=== PATIENT | female | born 1955 | race Caucasian/White ===

== ENCOUNTER → 2016-08-23 | Outpatient (CLI) | payer BC ==
[~2016-08-23] MED LIST: CITA40TA12 PO; EXM/25 PO; GABA-113 PO; LEVO50TA PO; LITH1TAB10 PO; MISCCAP80 PO; MULT-506 PO; NRN/600 PO; OMEG340C PO; TAMO20TA47 PO
[2016-08-23 11:08] LABS: BLOOD UREA NITROGEN 17 mg/dl (7-18); BUN/CREATININE RATIO 19.6 (10-20); CALCIUM 9.3 mg/dl (8.5-10.1); CARBON DIOXIDE 29 mmol/L (21-32); CHLORIDE 105 mmol/L (98-107); CREATININE 0.85 mg/dl (0.60-1.20); GLUCOSE 127 mg/dl (70-99); SODIUM 141 mmol/L (136-145)
[2016-08-23 11:18] LABS: THYROID STIMULATING HORMONE 0.854 uIu/ml (0.300-4.500)
== END | disposition home or self-care (01) ==
LOC: C.LABBC 08:21
PROVIDERS: ATTEND Psychiatry & Neurology Psychiatry
DX: F31.60 Bipolar disorder, current episode mixed, unspecified (principal); Z79.899 Other long term (current) drug therapy

== ENCOUNTER → 2016-08-29 | Outpatient (CLI) | payer BC | END | disposition home or self-care (01) | LOC: C.PATHSPEC 11:32 | PROVIDERS: ATTEND Plastic Surgery | DX: L98.9 Disorder of the skin and subcutaneous tissue, unspecified (principal) ==

== ENCOUNTER → 2016-09-22 | Outpatient (CLI) | payer BC ==
[~2016-09-22] MED LIST changes: -TAMO20TA47 PO; +TAMO20TA9 PO
--- NOTE | 2016-09-22 13:04 | MAMMOGRAPHY REPORT ---
BILATERAL DIGITAL SCREENING MAMMOGRAM TOMOSYNTHESIS WITH CAD: 09/22/2016 CLINICAL HISTORY: Asymptomatic. Personal history of breast cancer. TECHNIQUE: Breast tomosynthesis in addition to standard 2D mammography was performed. Current study was also evaluated with a Computer Aided Detection (CAD) system. COMPARISON: Comparison is made to exams dated: 09/15/2015 mammogram, 09/05/2014 mammogram, 03/04/2014 m ammogram, 09/10/2012 mammogram, 08/03/2010 mammogram - [facility], and 07/24/2007. BREAST COMPOSITION: There are scattered areas of fibroglandular density in both breasts. FINDINGS: No suspicious masses, calcifications, or areas of architectural distortion are noted in e ither breast. There has been no significant interval change compared to prior exams. There are stab le postoperative changes in the left lateral breast from prior lumpectomy, as well as post surgical changes from bilateral reduction mammoplasty. IMPRESSION: ACR BI-RADS CATEGORY 2: BENIGN There is no mammographic evidence of malignancy. A 1 year screening mammogram is recommended. The p atient will receive written notification of the results. Approximately 10% of breast cancers are not detected with mammography. A negative mammographic repor t should not delay biopsy if a clinically suggestive mass is present. Cecy Bonds M.D. /:09/22/2016 07:53:47 Truck Driver Rubbish Collector: Jenny De Paz RT(R)(M), [facility] letter sent: Normal 1/2 BI-RADS Code: ACR BI-RADS Category 2: Benign
== END | disposition home or self-care (01) ==
LOC: C.MAMM 07:17
PROVIDERS: ATTEND Internal Medicine Hematology & Oncology
DX: Z12.31 Encounter for screening mammogram for malignant neoplasm of breast (principal); Z85.3 Personal history of malignant neoplasm of breast

== ENCOUNTER → 2016-10-11 | Outpatient (CLI) | payer BC ==
[2016-10-11 13:21] LABS: BASO % 0.4 %; BASO ABS # 0.02 K/uL (0-0.2); COMPLETE YES; EOS % 2.8 %; HEMATOCRIT 44.3 % (37-47); IG% 0.4 %; LYMPH % 29.4 %; LYMPH ABS # 1.58 K/uL (1.2-3.4); MEAN CELL VOLUME 92.1 fL (80-100); MEAN CORPUSCULAR HGB CONC 33.6 g/dl (32-36); MEAN PLATELET VOLUME 11.5 fL (7.4-10.4); MONO % 8.9 %; NEUT % 58.1 %; PLATELET COUNT 172 K/uL (130-400); RED BLOOD COUNT 4.81 M/uL (4.2-5.4); WHITE BLOOD COUNT 5.37 K/uL (4.8-10.8)
[2016-10-11 13:59] LABS: ESTIMATED AVERAGE GLUCOSE 108 mg/dl; HA1C FLAG Normal (Normal)
[2016-10-11 15:05] LABS: ALT/SGPT 42 U/L (12-78); AST/SGOT 38 U/L (15-37); BLOOD UREA NITROGEN 14 mg/dl (7-18); BUN/CREATININE RATIO 18.5 (10-20); CALCIUM 9.1 mg/dl (8.5-10.1); CARBON DIOXIDE 24 mmol/L (21-32); CHLORIDE 108 mmol/L (98-107); CREATININE 0.76 mg/dl (0.60-1.20); GLUCOSE 99 mg/dl (70-99); POTASSIUM 4.5 mmol/L (3.5-5.1); SODIUM 139 mmol/L (136-145)
[2016-10-11 15:17] LABS: ALB/GLOB RATIO 1.1 (0.9-2); ALKALINE PHOSPHATASE 77 U/L (45-117); CHOLESTEROL 246 mg/dl (0-200); CHOLESTEROL/HDL RATIO 5.7; HDL CHOLESTEROL 43 mg/dl; LDL CHOLESTEROL CALCULATED 180 mg/dl; TRIGLYCERIDES 116 mg/dl (0-150); VERY LOW DENSITY LIPOPROT CALC 23 mg/dl
== END | disposition home or self-care (01) ==
LOC: C.LABBC 09:16
PROVIDERS: ATTEND Physician Assistant Medical
DX: Z00.00 Encounter for general adult medical examination without abnormal findings (principal); F32.9 Major depressive disorder, single episode, unspecified; K52.9 Noninfective gastroenteritis and colitis, unspecified; R73.9 Hyperglycemia, unspecified; I10 Essential (primary) hypertension

== ENCOUNTER 2016-11-19 14:05 | Inpatient (IN) | payer BC ==
[~2016-11-19] VITALS: Ht 157.5 cm; Wt 110.5 kg
[~2016-11-19 14:05] MED LIST changes: -EXM/25 PO; -GABA-113 PO; -LEVO50TA PO
[2016-11-19] MEDS ORDERED: SODIUM CHLORIDE 0.9% 1000ML 1,000 ML IV SCH (14:31)
[2016-11-19] MEDS ORDERED: LITH1TAB10 PO (14:51)
[2016-11-19] MEDS ORDERED: GABA-113 PO (14:51)
[2016-11-19] MEDS ORDERED: EXM/25 PO (14:51)
[2016-11-19 15:08] LABS: BASO % 0.4 %; BASO ABS # 0.02 K/uL (0-0.2); COMPLETE YES; EOS % 3.2 %; HEMATOCRIT 41.1 % (37-47); IG% 0.2 %; LYMPH % 34.3 %; LYMPH ABS # 1.72 K/uL (1.2-3.4); MEAN CELL VOLUME 89.7 fL (80-100); MEAN CORPUSCULAR HGB CONC 34.5 g/dl (32-36); MEAN PLATELET VOLUME 11.4 fL (7.4-10.4); MONO % 5.2 %; NEUT % 56.7 %; PLATELET COUNT 153 K/uL (130-400); RED BLOOD COUNT 4.58 M/uL (4.2-5.4); WHITE BLOOD COUNT 5.01 K/uL (4.8-10.8)
--- NOTE | 2016-11-19 15:09 | DIAGNOSTIC IMAGING REPORT ---
CHEST ONE VIEW PORTABLE CLINICAL HISTORY: Stroke COMPARISON STUDY: 11/22/2012 FINDINGS: The bones soft tissues and hemidiaphragms are normal. The cardiomediastinal silhouette is normal. The lungs are clear. The pulmonary vasculature is normal. IMPRESSION: Negative chest. Electronically signed by: Jaron Coe M.D. 11/19/2016 3:08 PM Dictated Date/Time: 11/19/2016 3:08 PM
[2016-11-19 15:16] LABS: PARTIAL THROMBOPLASTIN RATIO 1.1; PROTHROMBIN TIME (PATIENT) 10.8 SECONDS (9.0-12.0)
[2016-11-19 15:24] LABS: BLOOD UREA NITROGEN 14 mg/dl (7-18); BUN/CREATININE RATIO 16.5 (10-20); CALCIUM 8.7 mg/dl (8.5-10.1); CARBON DIOXIDE 24 mmol/L (21-32); CHLORIDE 109 mmol/L (98-107); CREATININE 0.87 mg/dl (0.60-1.20); GLUCOSE 140 mg/dl (70-99); POTASSIUM 3.6 mmol/L (3.5-5.1); SODIUM 141 mmol/L (136-145)
--- NOTE | 2016-11-19 15:27 | DIAGNOSTIC IMAGING REPORT ---
HEAD CT NONCONTRAST CT DOSE: 537.48 mGy.cm HISTORY: Mental status change Stroke TECHNIQUE: Multiaxial CT images of the head were performed without the use of intravenous contrast. Comparison: None. Findings: The paranasal sinuses and mastoid air cells are clear. The calvarium and skull base are intact. The ventricles and sulci are within normal limits. There is no mass, hematoma, midline shift, or acute infarct. Impression: No acute intracranial abnormality. Electronically signed by: Jaron Coe M.D. 11/19/2016 3:25 PM Dictated Date/Time: 11/19/2016 3:25 PM
[2016-11-19 15:30] LABS: CKMB/CK RATIO 1.5 (0-3.0)
--- NOTE | 2016-11-19 15:57 | EMERGENCY ROOM VISIT NOTE ---
History Report prepared by Paulo: Yanet Kovacs Under the Supervision of: Dr. Chance Funk M.D. First contact with patient: 14:22 Chief Complaint: HEAD PAIN Stated Complaint: HEAD PAIN,NUMBNESS History of Present Illness The patient is a 61 year old female who presents to the Emergency Room with complaints of a worsening headache since last night. The patient states that she felt well all day yesterday. She went to bed around 11pm and developed some numbness in her right cheek. About an hour later she developed a right sided headache. The patient states that it feels like needles are going through her head. 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 He advised her to come to the ED for further evaluation. She rates her current pain as a 7/10 in severity. The patient denies numbness or weakness in her extremities, trouble walking, trouble speaking. She also denies visual symptoms, fever, nausea, vomiting, abdominal pain, and chest pain. She does not have a personal or family history of migraine headaches. She notes that she did have a tissue graft in her mouth two weeks ago. Source of History: patient Onset: 11pm last night Position: head Symptom Intensity: 7/10 Quality: numbness Timing: worsening Associated Symptoms: + numbness (right cheek), No fevers, No chest pain, No nausea, No vomiting, No abdominal pain Note: The patient denies numbness or weakness in her extremities, trouble walking, trouble speaking. Review of Systems See HPI for pertinent positives & negatives. A total of 10 systems reviewed and were otherwise negative. Past Medical & Surgical Medical Problems: (1) Bipolar disorder (2) Breast cancer Surgical Problems: (1) H/O lumpectomy (2) H/O: hysterectomy (3) Hx of bilateral breast reduction surgery Family History Diabetes mellitus FHx: gallbladder disease Heart disease Hypertension Kidney disease Kidney stones Lung disease Stroke Social History Smoking Status: Never Smoker Smokeless Tobacco Use: No Alcohol Use: none Marital Status: Housing Status: lives with significant other Occupation Status: employed Current/Historical Medications Scheduled Citalopram Hydrobromide (Celexa), 40 MG PO HS Exemestane (Aromasin), 25 MG PO QAM Gabapentin (Neurontin), 300 MG PO BID [place] Carbonate Ext Rel (Lithobid Ext Rel), 300 MG PO QAM [place] Carbonate Ext Rel (Lithobid Ext Rel), 600 MG PO QPM Multivitamin (Multivitamin), 1 TAB PO DAILY [place]-3 Fatty Acids ([place] 3), 2 CAP PO DAILY Probiotic Product (Probiotic), 1 CAP PO DAILY Allergies Coded Allergies: No Known Allergies (Unverified , 11/19/16) Physical Exam Vital Signs Date Time Temp Pulse Resp B/P (MAP) Pulse Ox O2 Delivery O2 Flow Rate FiO2 11/19/16 15:27 141/79 11/19/16 15:17 94 Room Air 11/19/16 15:05 77 24 93 Room Air 11/19/16 15:03 81 11/19/16 14:13 36.9 77 18 114/73 94 Room Air Physical Exam Constitutional: Vital signs reviewed. Eyes: Pupils are equal round reactive to light. Conjunctiva are noninjected. ENT: Pharynx is clear without erythema or exudate. Mucous membranes are moist. Neck supple without meningeal signs. Respiratory: Clear to auscultation bilaterally. Breath sounds are equal bilaterally. Cardiovascular: Regular rate and rhythm. No rubs or gallops. GI: Soft, nondistended and nontender. Bowel sounds are present. Musculoskeletal: No peripheral edema. Integumentary: No cyanosis. Neurological: The patient is awake and alert. Cranial nerves II-XII are intact , except for dysesthesia to the entire right face not including the ear or scalp. Motor is 5 out of 5 all extremities. Sensation is intact to light touch all extremities. Normal speech. No pronator drift. No limb ataxia. Psychiatric: Normal affect. Medical Decision & Procedures ER Provider Diagnostic Interpretation: Radiology results as stated below per my review and the radiologist's interpretation: HEAD CT NONCONTRAST CT DOSE: 537.48 mGy.cm HISTORY: Mental status change Stroke TECHNIQUE: Multiaxial CT images of the head were performed without the use of intravenous contrast. Comparison: None. Findings: The paranasal sinuses and mastoid air cells are clear. The calvarium and skull base are intact. The ventricles and sulci are within normal limits. There is no mass, hematoma, midline shift, or acute infarct. Impression: No acute intracranial abnormality. Electronically signed by: Jaron Coe M.D. 11/19/2016 3:25 PM Dictated Date/Time: 11/19/2016 3:25 PM CHEST ONE VIEW PORTABLE CLINICAL HISTORY: Stroke COMPARISON STUDY: 11/22/2012 FINDINGS: The bones soft tissues and hemidiaphragms are normal. The cardiomediastinal silhouette is normal. The lungs are clear. The pulmonary vasculature is normal. IMPRESSION: Negative chest. Electronically signed by: Jaron Coe M.D. 11/19/2016 3:08 PM Dictated Date/Time: 11/19/2016 3:08 PM Laboratory Results 11/19/16 14:55 Red Blood Count 4.58, Mean Corpuscular Volume 89.7, Mean Corpuscular Hemoglobin 31.0, Mean Corpuscular Hemoglobin Concent 34.5, Mean Platelet Volume 11.4, Neutrophils (%) (Auto) 56.7, Lymphocytes (%) (Auto) 34.3, Monocytes (%) (Auto) 5.2, Eosinophils (%) (Auto) 3.2, Basophils (%) (Auto) 0.4, Neutrophils # (Auto) 2.84, Lymphocytes # (Auto) 1.72, Monocytes # (Auto) 0.26, Eosinophils # (Auto) 0.16, Basophils # (Auto) 0.02 11/19/16 14:55 Test 11/19/16 14:41 11/19/16 14:55 11/19/16 15:39 Bedside Prothrombin Time INR 1.0 (0.9-1.1) Bedside Glucose 153 mg/dl (70-90) White Blood Count 5.01 K/uL (4.8-10.8) Red Blood Count 4.58 M/uL (4.2-5.4) Hemoglobin 14.2 g/dL (12.0-16.0) Hematocrit 41.1 % (37-47) Mean Corpuscular Volume 89.7 fL (80-100) Mean Corpuscular Hemoglobin 31.0 pg (25-34) Mean Corpuscular Hemoglobin Concent 34.5 g/dl (32-36) Platelet Count 153 K/uL (130-400) Mean Platelet Volume 11.4 fL (7.4-10.4) Neutrophils (%) (Auto) 56.7 % Lymphocytes (%) (Auto) 34.3 % Monocytes (%) (Auto) 5.2 % Eosinophils (%) (Auto) 3.2 % Basophils (%) (Auto) 0.4 % Neutrophils # (Auto) 2.84 K/uL (1.4-6.5) Lymphocytes # (Auto) 1.72 K/uL (1.2-3.4) Monocytes # (Auto) 0.26 K/uL (0.11-0.59) Eosinophils # (Auto) 0.16 K/uL (0-0.5) Basophils # (Auto) 0.02 K/uL (0-0.2) RDW Standard Deviation 44.1 fL (36.4-46.3) RDW Coefficient of Variation 13.4 % (11.5-14.5) Immature Granulocyte % (Auto) 0.2 % Immature Granulocyte # (Auto) 0.01 K/uL (0.00-0.02) Prothrombin Time 10.8 SECONDS (9.0-12.0) Prothromb Time International Ratio 1.0 (0.9-1.1) Activated Partial Thromboplast Time 27.3 SECONDS (21.0-31.0) Partial Thromboplastin Ratio 1.1 Anion Gap 8.0 mmol/L (3-11) Est Creatinine Clear Calc Drug Dose 83.2 ml/min Estimated GFR () 83.3 Estimated GFR (Non- 71.9 BUN/Creatinine Ratio 16.5 (10-20) Calcium Level 8.7 mg/dl (8.5-10.1) Total Creatine Kinase 92 U/L (26-192) Creatine Kinase MB 1.4 ng/ml (0.5-3.6) Creatine Kinase MB Ratio 1.5 (0-3.0) Troponin I < 0.015 ng/ml (0-0.045) Laboratory results as reviewed by me. Medications Administered Medications (Trade) Dose Ordered Sig/Morris Route Start Time Stop Time Status Last Admin Dose Admin Sodium Chloride 1,000 ml @ 50 mls/hr Q20H IV 11/19/16 14:31 12/19/16 14:30 11/19/16 14:55 50 MLS/HR ECG Indication: other (stroke-like symptoms) Rate (beats per minute): 74 Rhythm: normal sinus Findings: nonspecific-ST abn (leads V1-V3), no ectopy Comparison ECG Date: 03/08/2014 Change: no significant change ED Course 1424: The patient was evaluated in room B7. A complete history and physical exam was performed. 1431: NSS 1000 ml @ 50 mls/hr IV 1529: I reassessed the patient at this time. She is feeling better and resting comfortably. I discussed the results and treatment plan with the patient. I answered all pertaining questions that she had. She expressed understanding and verbalized agreement. 1531: I spoke with Dr. Cerda of neurology. We discussed the patient's case and he recommended admission for a stroke work-up. 1536: I spoke with Dr. Chappell. We discussed the patient's results and treatment plan. The patient will be evaluated by the [facility] for further management. Medical Decision This is a 61-year-old female who presents with headache and numbness to the right side of her face. Differential diagnosis includes intracranial mass, intracranial hemorrhage, TIA, CVA, migraine. I did perform a limited focused review of portions of the patient's old chart on the electronic medical record. The patient has had no recent pertinent visits to this hospital. Medication Reconciliation: I attest that I have personally reviewed the patient' s current medication list. Blood Pressure Screening: Patient was found to have normal blood pressure on screening and does not require follow-up. I did evaluate the patient as noted above. IV access was established. 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 I did order and personally review the patient's 12-lead EKG and chest x-ray as described above. I did order and review the patient's blood work as noted in the electronic medical record. I did order a CT of the head. I did review the images myself as well as the radiology report as described above. There is no evidence of acute CVA or mass. I did reassess the patient. She continues to have symptoms. I did discuss the case with the neurologist on-call. Given her persistent symptoms she will be hospitalized for MRI and further workup. I did add a Lyme titer although she does not have any facial droop. I did discuss the case with the hospitalist and corrections caseworker. Consults Time Called: 152 Consulting Physician: Dr. Creda Returned Call: [address] Cerda of neurology. We discussed the patient's case and he recommended admission for a stroke work-up. Additional Consults: Time Called: 1534 Consulted Physician: Dr. Chappell Returned Call: 153 Additional Comments: I spoke with Dr. Chappell. We discussed the patient's results and treatment plan. The patient will be evaluated by the [facility] for further management. Impression Primary Impression: Right facial numbness Additional Impression: Acute headache Scribe Attestation The scribe's documentation has been prepared under my direct and personally reviewed by me in its entirety. I confirm that the note above accurately reflects all work, treatment, procedures, and medical decision making performed by me. Departure Information Dispostion Being Evaluated By Hospitalist Referrals Preston Silvestre M.D. (PCP) Patient Instructions My [facility] Health Problem Qualifiers Additional Impression: Acute headache Headache type: unspecified Intractability: not intractable Qualified Codes : R51 - Headache
[2016-11-19 16:35] LABS: LYME DISEASE AB IGG NEG (NEG); LYME DISEASE AB IGM NEG (NEG)
[2016-11-19] MEDS ORDERED: ALUMINUM/MAGNESIUM/SIMETH (MAALOX MAX) 30 ML UDC PO PRN (17:30)
[2016-11-19] MEDS ORDERED: ZOLPIDEM TARTRATE 5 MG TAB PO PRN (17:30)
[2016-11-19] MEDS ORDERED: POLYETHYLENE (MIRALAX) 17 GM PACK PO PRN (17:30)
[2016-11-19] MEDS ORDERED: MAGNESIUM HYDROXIDE SUSP 30 ML UDC PO PRN (17:30)
[2016-11-19] MEDS ORDERED: PHARMACIST DISCHARGE MED REC CONSULT PRN (17:30)
[2016-11-19] MEDS ORDERED: ACETAMINOPHEN 325 MG TAB PO PRN (17:30)
[2016-11-19] MEDS ORDERED: ASPIRIN 325 MG ECTAB PO STA (17:40)
[2016-11-19] MEDS ORDERED: SIMVASTATIN 10 MG TAB PO STA (17:42)
[2016-11-19 17:57] VITALS: Ht 157.5 cm; Wt 110.5 kg
--- NOTE | 2016-11-19 18:35 | HISTORY & PHYSICAL EXAMINATION ---
DATE OF ADMISSION: 11/19/2016 CHIEF COMPLAINT: Right-sided numbness of the face. HISTORY OF PRESENT ILLNESS: The patient is a 61-year-old white female with past medical history of bipolar disorder and obesity, presented to the ED with 1 day history of numbness on the right side of her face. The patient stated that her symptoms started yesterday with numbness on the right cheek with headache 7/10 mainly on the right side of her face and head. There was no blurring of vision, no visual problems. Denies any weakness or numbness in the rest of her body. Denies any slurred speech. 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 She called her doctor who advised her to come to the ED. The patient did not take any medications yesterday. She said that she was just trying to meditate and she slept, she woke up with her headache completely resolved but numbness on the right side of the face is continued. The patient never had headaches before and usually has no neurologic symptoms except for intermittent shooting pain in the tips of fingers and toes that can happen every now and then. REVIEW OF SYSTEMS: Denies any fever, chills, weight loss. Denies any double vision, blurry vision. Denies any neck stiffness or swelling. Denies any nasal stuffiness or runny nose or sore throat. Denies any cough, shortness of breath, chest pain or palpitations. Denies any abdominal pain, nausea, vomiting. Denies any rashes or ulcers. Denies any joint pain or swelling. Admits to numbness in the right side of the face, but denies any focal weakness or slurred speech. Denies any dysuria or blood in urine. Denies any depression, suicidal or homicidal thoughts. Denies any lymph nodes or bruises in her body. PAST MEDICAL HISTORY: 1. Bipolar disorder. 2. Breast cancer in the left breast, stage I, status post lumpectomy and radiation in 2012. 3. Obesity. 4. Bilateral breast reduction surgery. FAMILY HISTORY: Diabetes mellitus, heart disease, hypertension and kidney disease. SOCIAL HISTORY: Does not smoke or drink. Lives with her who smokes outside the house. HOME MEDICATIONS: 1. Celexa 40 mg p.o. at bedtime. 2. Gabapentin 300 mg p.o. b.i.d. 3. [place] 300 mg p.o. q.a.m. and 600 mg q.p.m. 4. Multivitamin 1 tablet p.o. daily. 5. [place]-3 fatty acid. 6. Probiotic daily. ALLERGIES: No known drug allergy. PHYSICAL EXAMINATION: VITAL SIGNS: Temperature 36.9, heart rate 77, respirations 24, blood pressure 141/79 and pulse ox 94% on room air. GENERAL: The patient is obese, not in acute distress. HEENT: No jaundice, no pallor. Wet mucous membrane. NECK: Supple. No swelling. HEART: S1, S2 normal. No gallop, rub or murmur. LUNGS: Clear to auscultation bilaterally. Normal chest wall expansion. ABDOMEN: Soft, nontender, nondistended. NEUROLOGIC: Awake, alert, oriented to time, place, and person. Moves all extremities. Sensation intact except for slight numbness over her right zygomatic bone and maxilla. Cranial nerves II-XII appears to be intact. PSYCHIATRIC: Normal affect mood and chain of thoughts. SKIN: No rash or bruises or erythema. EXTREMITIES: No edema or tenderness. IMAGING: CT head showed no acute intracranial abnormality. Chest x-ray was negative for any acute event. LABORATORY DATA: White blood cell count is 5, hemoglobin is 14.2, platelets 153. Creatinine 0.87, BUN is 14. Sodium 141, potassium 3.6. EKG was normal sinus rhythm with nonspecific ST-T wave changes. ASSESSMENT AND PLAN: 1. Right facial numbness that is persistent with right side facial headache that resolved. Normal CT head. We will obtain MRA of the brain, we will also obtain CT angiogram head and neck to rule out any critical stenosis. Obtain 2D echo. Obtain lipids and hemoglobin A1c and TSH to stratify her risk. Neurologist consult has been called by the ED physician. 2. Bipolar disorder on lithium, Obtain a lithium level. 3. Morbid obesity. The patient was consulted to lose weight. 4. Knee arthritis, currently stable. 5. Bipolar disorder. Continue her Celexa, but we will hold lithium until we get the level back. 6. Heparin for deep venous thrombosis prophylaxis. We will treat empirically with aspirin and statin. The patient reported history of myalgia from Lipitor. She agreed to try a low dose simvastatin. [facility]
[2016-11-19] MEDS ORDERED: IV FLUIDS COMPLETED PRN (18:45)
--- NOTE | 2016-11-19 19:18 | DIAGNOSTIC IMAGING REPORT ---
BILATERAL CAROTID DOPPLER STUDY HISTORY: Mental status change Stroke COMPARISON: None. TECHNIQUE: Real-time, grayscale, and color Doppler sonography of the carotid arteries was performed. Imaging reviewed in the transverse and longitudinal planes. All measurements were calculated based on NASCET criteria. FINDINGS: Antegrade flow is seen in the bilateral vertebral arteries. The brachial pressures are hemodynamically similar. Moderate plaque formation bilaterally The peak systolic velocity within the right ICA is 80. The right systolic ratio is 1.2. The peak systolic velocity within the left ICA is 86. The left systolic ratio is 0.9. IMPRESSION: No hemodynamically significant stenosis seen within the carotid arteries. Moderate plaque formation bilaterally Electronically signed by: Jaron Coe M.D. 11/19/2016 7:17 PM Dictated Date/Time: 11/19/2016 7:16 PM
--- NOTE | 2016-11-19 20:28 | DIAGNOSTIC IMAGING REPORT ---
Brain MRI WITHOUT CONTRAST HISTORY: Stroke TECHNIQUE: Multiplanar multisequence MRI of the brain was performed without the use of contrast. COMPARISON STUDY: None. FINDINGS: There are no areas of restricted diffusion to suggest acute infarction. The midline structures are intact. The paranasal sinuses are clear. The mastoid air cells are clear. The ventricles and sulci are within normal limits for age. There is no mass, hematoma, midline shift. The major vascular flow-voids at the skull base are well maintained. IMPRESSION: No acute intracranial abnormality. Electronically signed by: Jaron Coe M.D. 11/19/2016 8:26 PM Dictated Date/Time: 11/19/2016 8:26 PM
--- NOTE | 2016-11-19 20:29 | DIAGNOSTIC IMAGING REPORT ---
Brain MRA HISTORY: Mental status change Stroke - Attention to [place] of [place] TECHNIQUE: 3-D [id number] MRA of the brain was performed without contrast. COMPARISON STUDY: None. FINDINGS: Visualized intracranial internal carotid arteries, distal vertebral arteries, and basilar artery are widely patent. There is no significant stenosis, occlusion, or aneurysm seen within the bilateral ACAs, MCAs, or balance bridge inspector. IMPRESSION: No significant stenosis, occlusion, or aneurysm within the [place] of [place]. Electronically signed by: Jaron Coe M.D. 11/19/2016 8:28 PM Dictated Date/Time: 11/19/2016 8:27 PM
[2016-11-19] MEDS ORDERED: ENOXAPARIN 40 MG/0.4 ML SYR SC SCH (21:00)
[2016-11-19] MEDS ORDERED: CITALOPRAM 40 MG TAB PO SCH (21:00)
[2016-11-19] MEDS: GABAPENTIN 300 MG CAP PO SCH (21:38)
[2016-11-19] MEDS: SODIUM CHLORIDE 0.9% 1000ML 1,000 ML IV SCH (21:38)
[2016-11-19 23:45] VITALS: BP 140/69; PULSE 68; TEMP 36.8; O2SAT 94
[2016-11-20] MEDS: SODIUM CHLORIDE 0.9% 1000ML 1,000 ML IV SCH (03:29)
[2016-11-20 03:42] VITALS: BP 103/65; PULSE 63; TEMP 36.5; O2SAT 94
[2016-11-20] MEDS: GABAPENTIN 300 MG CAP PO SCH (07:29)
[2016-11-20 07:35] VITALS: BP 152/84; PULSE 72; TEMP 36.6; O2SAT 94
[2016-11-20 07:55] LABS: BASO % 0.4 %; BASO ABS # 0.02 K/uL (0-0.2); COMPLETE YES; EOS % 2.3 %; HEMATOCRIT 42.2 % (37-47); IG% 0.2 %; LYMPH % 34.1 %; MEAN CELL VOLUME 90.4 fL (80-100); MEAN CORPUSCULAR HEMOGLOBIN 29.8 pg (25-34); MEAN CORPUSCULAR HGB CONC 32.9 g/dl (32-36); MEAN PLATELET VOLUME 10.9 fL (7.4-10.4); MONO % 5.9 %; NEUT % 57.1 %; PLATELET COUNT 166 K/uL (130-400); RED BLOOD COUNT 4.67 M/uL (4.2-5.4); WHITE BLOOD COUNT 5.57 K/uL (4.8-10.8)
[2016-11-20 08:00] VITALS: O2SAT 94
[2016-11-20 08:31] LABS: BUN/CREATININE RATIO 18.8 (10-20); CHOLESTEROL/HDL RATIO 6.9; CREATININE 0.78 mg/dl (0.60-1.20); MAGNESIUM 2.1 mg/dl (1.8-2.4); POTASSIUM 4.3 mmol/L (3.5-5.1)
[2016-11-20 08:35] LABS: CALCIUM 8.5 mg/dl (8.5-10.1)
[2016-11-20] MEDS ORDERED: MULTIVITAMIN TAB PO SCH (09:00)
[2016-11-20] MEDS ORDERED: ASPIRIN 325 MG ECTAB PO SCH (09:00)
--- NOTE | 2016-11-20 09:59 | Neurology Consultation ---
Neurology Consultation Date of Consultation: Nov 20, 2016. Attending Physician: Glen Calderón D.O. Primary Care Physician: Preston Silvestre M.D. Reason for Consultation: Facial numbness History of Present Illness Source: patient, hospital records The patient is a 61-year-old female who complains of right-sided stabbing head pain that began 2 nights ago. The pain was severe and rated at a 7 out of 10 in severity. The patient also complains of associated numbness affecting primarily the right cheek and around the right eye, but not the right lower jaw. The symptoms began two evenings ago and were still present yesterday morning upon awakening. The symptoms intensified throughout the day. This morning, however, the symptoms have completely resolved. 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 She does not have a known history of trigeminal neuralgia or migraine. The patient also complains of intermittent shakiness of the right lower extremity that occurs with prolonged sitting. As particular symptom has been present for many months and does not seem to be related to her presenting complaint. The patient does admit to a history of chronic, episodic sciatica which radiates down the back of the right thigh. She denies expressing significant low back pain at this time, however. No history of spinal surgeries. Past medical history also notable for bipolar disorder, breast cancer with radiation treatments in 2012, and morbid obesity. Labs reviewed including a CBC, comprehensive metabolic panel, and Lyme antibody screening are unremarkable. Random glucose was 140. Electrocardiogram revealed normal sinus rhythm, [address] of the head and carotid ultrasound were unremarkable. Past Medical/Surgical History Medical Problems: (1) Acute headache Status: Acute (2) Right facial numbness Status: Acute Family History Family history notable for diabetes mellitus, hypertension, and stroke Social History Smoking Status: Former smoker Smokeless Tobacco Use: No Marital Status: Housing Status: lives with significant other Occupation Status: employed Allergies Coded Allergies: No Known Allergies (Unverified , 11/19/16) Current Inpatient Medications Current Inpatient Medications Medications (Trade) Dose Ordered Sig/Morris Route Start Time Stop Time Status Last Admin Dose Admin Enoxaparin Sodium (Lovenox Inj) 40 mg QPM SC 11/19/16 21:00 12/19/16 20:59 11/19/16 21:39 40 MG Sodium Chloride 1,000 ml @ 100 mls/hr Q10H IV 11/19/16 17:22 12/19/16 17:21 11/20/16 03:29 100 MLS/HR Acetaminophen (Tylenol Tab) 650 mg Q4H PRN PO 11/19/16 17:30 12/19/16 17:29 Al Hydrox/Mg Hydrox/Simethicone (Maalox Max Susp) 15 ml Q4H PRN PO 11/19/16 17:30 12/19/16 17:29 Magnesium Hydroxide (Milk Of Magnesia Susp) 30 ml Q12H PRN PO 11/19/16 17:30 12/19/16 17:29 Zolpidem Tartrate (Ambien Tab) 5 mg HSZ PRN PO 11/19/16 17:30 12/19/16 17:29 11/19/16 21:42 5 MG Polyethylene (Miralax Powder Packet) 17 gm DAILY PRN PO 11/19/16 17:30 12/19/16 17:29 Miscellaneous Information (Pharmacist Discharge Med Rec Consult) 1 ea UD PRN N/A 11/19/16 17:30 12/19/16 17:29 Simvastatin (Zocor Tab) 10 mg QPM PO 11/20/16 21:00 12/20/16 20:59 Aspirin (Ecotrin Tab) 325 mg QAM PO 11/20/16 09:00 12/20/16 08:59 11/20/16 07:29 325 MG Citalopram Hydrobromide (celeXA TAB) 40 mg HS PO 11/19/16 21:00 12/19/16 20:59 11/19/16 21:38 40 MG Gabapentin (Neurontin Cap) 300 mg BID PO 11/19/16 21:00 12/19/16 20:59 11/20/16 07:29 300 MG Multivitamins (Multivitamin Tab) 1 tab DAILY PO 11/20/16 09:00 12/20/16 08:59 11/20/16 07:29 1 TAB Miscellaneous (Iv Fluids Completed) 1 ea PRN PRN N/A 11/19/16 18:45 11/19/17 18:44 Review of Systems Review of systems negative for fever, chills, blurry vision, vision loss, hearing loss, sore throat, shortness of breath, cough, chest pain, palpitations , nausea, vomiting, muscle pain, weakness, rash, skin lesions, depression ( although treated with an antidepressant currently) easy bruising, or swollen glands A full 10 point review of systems was obtained from this patient with pertinent positives and negatives described in history of present illness and otherwise listed above. All other systems reviewed and are negative. Physical Exam Vital Signs (Past 24 Hrs): Date Time Temp Pulse Resp B/P (MAP) Pulse Ox O2 Delivery O2 Flow Rate FiO2 11/20/16 07:35 36.6 72 20 152/84 (106) 94 Room Air 11/20/16 04:32 Room Air 11/20/16 03:42 36.5 63 18 103/65 (78) 94 Room Air 11/20/16 00:11 Room Air 11/19/16 23:45 36.8 68 20 140/69 (92) 94 Room Air 11/19/16 18:20 72 24 11/19/16 18:15 36.9 77 19 149/74 97 11/19/16 18:15 70 15 11/19/16 18:10 75 18 11/19/16 18:05 72 22 11/19/16 18:00 77 19 97 11/19/16 17:57 Room Air 11/19/16 17:42 149/74 11/19/16 17:31 165/117 11/19/16 17:30 68 20 11/19/16 17:01 152/84 11/19/16 17:00 73 24 94 11/19/16 16:55 148/68 11/19/16 16:37 72 18 94 11/19/16 16:32 176/112 11/19/16 16:07 74 16 96 11/19/16 16:02 74 24 93 11/19/16 16:01 137/74 11/19/16 15:32 73 28 94 11/19/16 15:27 141/79 11/19/16 15:17 94 Room Air 11/19/16 15:05 77 24 93 Room Air 11/19/16 15:03 81 11/19/16 14:13 36.9 77 18 114/73 94 Room Air The patient is a well-developed, well-nourished, obese female, no acute distress. She is alert and oriented to person place and time. Recent and remote memory intact. Attention and concentration normal. She exhibits a normal spontaneous speech pattern as well as an age-appropriate fund of knowledge. Visual guerra full to confrontation. Visual acuity normal. Pupils equal round reactive to light and accommodation. Eye movements normal. Facial sensation intact for the upper, mid, and lower aspects of both the right and left side of the face. There is no facial weakness or facial droop. Hearing intact to finger rub bilaterally. Palate elevates to midline. Shoulder shrug intact. Tongue protrudes to midline. Sensation intact to light touch, vibration, proprioception , and temperature for all 4 limbs. Deep tendon reflexes are intact and symmetrical. Plantar responses downgoing bilaterally. There is no dysdiadochokinesia or dysmetria with finger to nose or heel to lozano bilaterally. The optic disks and posterior segments are normal to ophthalmoscopic examination. No papilledema or hemorrhages. Carotid pulses normal bilaterally, no bruits to auscultation. Gait and station normal. Muscle strength normal for the arms and legs bilaterally. Muscle tone normal throughout. No atrophy. No abnormal movements observed. Laboratory Results Past 24 Hours: 11/20/16 07:42 Red Blood Count 4.67, Mean Corpuscular Volume 90.4, Mean Corpuscular Hemoglobin 29.8, Mean Corpuscular Hemoglobin Concent 32.9, Mean Platelet Volume 10.9, Neutrophils (%) (Auto) 57.1, Lymphocytes (%) (Auto) 34.1, Monocytes (%) (Auto) 5.9, Eosinophils (%) (Auto) 2.3, Basophils (%) (Auto) 0.4, Neutrophils # (Auto) 3.18, Lymphocytes # (Auto) 1.90, Monocytes # (Auto) 0.33, Eosinophils # (Auto) 0.13, Basophils # (Auto) 0.02 11/20/16 07:42 Test 11/19/16 14:41 11/19/16 14:55 11/19/16 18:46 11/20/16 07:42 Bedside Prothrombin Time INR 1.0 (0.9-1.1) Bedside Glucose 153 mg/dl (70-90) Prothrombin Time 10.8 SECONDS (9.0-12.0) Prothromb Time International Ratio 1.0 (0.9-1.1) Activated Partial Thromboplast Time 27.3 SECONDS (21.0-31.0) Partial Thromboplastin Ratio 1.1 Total Creatine Kinase 92 U/L (26-192) Creatine Kinase MB 1.4 ng/ml (0.5-3.6) Creatine Kinase MB Ratio 1.5 (0-3.0) Troponin I < 0.015 ng/ml (0-0.045) Lyme Disease IgG Antibody NEG (NEG) Lyme Disease IgM Antibody NEG (NEG) [place] Level 0.8 mMOL/L (0.6-1.2) White Blood Count 5.57 K/uL (4.8-10.8) Red Blood Count 4.67 M/uL (4.2-5.4) Hemoglobin 13.9 g/dL (12.0-16.0) Hematocrit 42.2 % (37-47) Mean Corpuscular Volume 90.4 fL (80-100) Mean Corpuscular Hemoglobin 29.8 pg (25-34) Mean Corpuscular Hemoglobin Concent 32.9 g/dl (32-36) Platelet Count 166 K/uL (130-400) Mean Platelet Volume 10.9 fL (7.4-10.4) Neutrophils (%) (Auto) 57.1 % Lymphocytes (%) (Auto) 34.1 % Monocytes (%) (Auto) 5.9 % Eosinophils (%) (Auto) 2.3 % Basophils (%) (Auto) 0.4 % Neutrophils # (Auto) 3.18 K/uL (1.4-6.5) Lymphocytes # (Auto) 1.90 K/uL (1.2-3.4) Monocytes # (Auto) 0.33 K/uL (0.11-0.59) Eosinophils # (Auto) 0.13 K/uL (0-0.5) Basophils # (Auto) 0.02 K/uL (0-0.2) RDW Standard Deviation 43.9 fL (36.4-46.3) RDW Coefficient of Variation 13.4 % (11.5-14.5) Immature Granulocyte % (Auto) 0.2 % Immature Granulocyte # (Auto) 0.01 K/uL (0.00-0.02) Anion Gap 9.0 mmol/L (3-11) Est Creatinine Clear Calc Drug Dose 88.8 ml/min Estimated GFR () 95.1 Estimated GFR (Non- 82.1 BUN/Creatinine Ratio 18.8 (10-20) Calcium Level 8.5 mg/dl (8.5-10.1) Magnesium Level 2.1 mg/dl (1.8-2.4) Triglycerides Level 231 mg/dl (0-150) Cholesterol Level 201 mg/dl (0-200) HDL Cholesterol 29 mg/dl LDL Cholesterol, Calculated 126 mg/dl VLDL Cholesterol, Calculated 46 mg/dl Cholesterol/HDL Ratio 6.9 Imaging An MRA of the head was unremarkable. An MRI of the brain without contrast was unremarkable as well. Diffusion-weighted images negative for acute or subacute infarct. No evidence of significant parenchymal abnormalities. Impression Resolved right facial pain and numbness corresponding primarily to a right V2/ V3 distribution. This patient may have experienced a very brief episode of atypical trigeminal neuralgia or possibly a complex migraine. She has a history of chronic, intermittent, sciatica to the right lower limb which is not clinically significant at this time. Plan If this patient experiences a relapse of her right facial numbness and pain that I would be happy to see her for outpatient follow-up. If her symptoms do recur, then I will consider obtaining an MRI of the brain with and without contrast with attention to the trigeminal nerves. I do not think additional testing for her sciatica is necessary at this time. I do not have any specific treatment recommendations for this patient currently. No further immediate recommendations.
--- NOTE | 2016-11-20 10:25 | Discharge Instructions ---
Discharge Instructions Date of Service Nov 20, 2016. Admission Reason for Admission: Facial Numbness Discharge Discharge Diagnosis / Problem: Facial numbness Discharge Goals Goal(s): Decrease discomfort, Improve function, Increase independence, Improve disease control, Learn about illness, Diagnostic testing Activity Recommendations Activity Limitations: resume your previous activity Exercise/Sports Limitations: none Shower/Bathe: no limitations . Instructions / Follow-Up Instructions / Follow-Up Patient to be discharged home Unlikely numbness related to stroke based on imaging studies Questionable if from complex migraine No changes to medications made If worsening numbness, weakness, difficulty speaking or swallowing please report to ER Please follow up with your primary care provider as scheduled Current Hospital Diet Patient's current hospital diet: Regular Diet Discharge Diet Recommended Diet: Regular Diet Pending Studies Studies pending at discharge: no Laboratory Results Hemoglobin A1c Test 11/19/16 14:55 Range/Units Lipid Panel Test 11/20/16 07:42 Range/Units Triglycerides Level 231 H 0-150 mg/dl Cholesterol Level 201 H 0-200 mg/dl HDL Cholesterol 29 mg/dl Cholesterol/HDL Ratio 6.9 LDL Cholesterol, Calculated 126 mg/dl Medical Emergencies . Who to Call and When: Medical Emergencies: If at any time you feel your situation is an emergency, please call 911 immediately. . Non-Emergent Contact Non-Emergency issues call your: Primary Care Provider Call Non-Emergent contact if: you have a fever, your pain is worsening . . "Provider Documentation" section prepared by Glen Calderón. . VTE Core Measure Inpt VTE Proph given/why not?: Enoxaparin (Lovenox)SQ
[2016-11-20] MEDS ORDERED: PERFLUTREN LIPID MICROSPHERE (DEFINITY) IV ONE (10:40)
[2016-11-20 11:18] VITALS: BP 152/84; PULSE 72; TEMP 36.6; O2SAT 94
--- NOTE | 2016-11-20 11:18 | Discharge Summary ---
Discharge Summary Date of Service Nov 20, 2016. Discharge Summary Admission Date: Nov 19, 2016 at 17:43 Discharge Date: Nov 20, 2016 Discharge Disposition: Home Principal Diagnosis: Right sided facial numbness Immunizations: Have You Had Influenza Vaccine: Yes Influenza Vaccine Date: Jul 05, 2004 History of Tetanus Vaccine?: Yes Tetanus Immunization Date: Jan 02, 2005 History of Pneumococcal: No History of Hepatitis B Vaccine: No Medication Reconciliation Continued Medications: Citalopram Hydrobromide (Celexa) 40 Mg Tab 40 MG PO HS, TAB Exemestane (Aromasin) 25 Mg Tab 25 MG PO QAM, TAB Gabapentin (Neurontin) 300 Mg Cap 300 MG PO BID [place] Carbonate Ext Rel (Lithobid Ext Rel) 300 Mg Tabcr 300 MG PO QAM, TAB [place] Carbonate Ext Rel (Lithobid Ext Rel) 300 Mg Tabcr 600 MG PO QPM, TAB Multivitamin (Multivitamin) Tab 1 TAB PO DAILY, TAB [place]-3 Fatty Acids ([place] 3) 1 Cap Cap 2 CAP PO DAILY Probiotic Product (Probiotic) 1 Cap Cap 1 CAP PO DAILY Discharge Exam Review of Systems: Constitutional: No fever, No chills, No sweats, No weakness Eyes: No worsening of vision, No eye pain, No redness, No discharge ENT: No hearing loss, No unusual epistaxis, No nasal symptoms, No sore throat, No tinnitus Respiratory: No cough, No sputum, No wheezing, No shortness of breath, No dyspnea on exertion Cardiovascular: No chest pain, No orthopnea, No PND, No edema, No claudication Abdomen: No pain, No nausea, No vomiting, No diarrhea Musculoskeletal: No joint pain, No muscle pain Genitourinary - Female: No dysuria, No urinary frequency, No urinary urgency , No urinary incontinence Neurologic: No memory loss, No paralysis, No weakness, No numbness/tingling Psychiatric: No depression symptoms, No anhedonism, No anxiety, No insomnia Endocrine: No fatigue, No excessive thirst Integumentary: No rash, No itch Physical Exam: General Appearance: WD/WN, no apparent distress Eyes: normal inspection, PERRL, EOMI, sclerae normal Neck: supple, no adenopathy, thyroid normal, no JVD Respiratory/Chest: chest non-tender, lungs clear, normal breath sounds, no respiratory distress Cardiovascular: regular rate, rhythm, no edema, no gallop, no JVD Abdomen / GI: normal bowel sounds, non tender, soft, no organomegaly Extremities: normal inspection, no calf tenderness, normal capillary refill , no pedal edema Neurologic/Psychiatric: spring inspector II-XII nml as tested, no motor/sensory deficits , alert, normal mood/affect Skin: normal color, warm/dry, no rash Lymphatic: no adenopathy Hospital Course Right facial numbness that is persistent with right side facial headache that resolved. ? if from complex migraine CT head/MRA of the brain/CT angiogram head and neck unremarkable Obtain 2D echo.pending on discharge If worsening can consider a neurology consult on discharge Bipolar disorder on lithium, Obtain a lithium level. Morbid obesity. The patient was consulted to lose weight. Knee arthritis, currently stable. Bipolar disorder. Continue her Celexa, but we will hold lithium until we get the level back. Heparin for deep venous thrombosis prophylaxis. We will treat empirically with aspirin and statin. The patient reported history of myalgia from Lipitor. She agreed to try a low dose simvastatin. Pt is FULL CODE Total Time Spent: Greater than 30 minutes This includes examination of the patient, discharge planning, medication reconciliation, and communication with other providers. Discharge Instructions Please refer to the electronic Patient Visit Report (Discharge Instructions) for additional information. Additional Copies To Preston Silvestre M.D.
--- NOTE | 2016-11-20 12:06 | ECHOCARDIOGRAM REPORT ---
*NOTICE TO RECEIVING CONSTITUTION PARTY AGENCY This information is strictly Confidential and protected under [place] law. [place] law prohibits you from making any further disclosure of this information unless further disclosure is expressly permitted by the written consent of the person to whom it pertains or is authorized by law. A general authorization for the release of medical or other information is not sufficient for this purpose. Hospital accepts no responsibility if the information is made available to any other person, INCLUDING THE PATIENT. Interpretation Summary * Name: QI CHEN Study Date: 11/20/2016 10:05 AM BP: 152/84 mmHg * Patient Location: C.2T\S\S244\S\1 HR: 72 * : 1955 (M/d/yyyy) Gender: Female Height: 62 in * Age: 61 yrs Ethnicity: [place] Weight: 262 lb * Ordering Physician: Pebbles Leonard * Referring Physician: Self, Referred * Performed By: Lina Martinez RDCS * * Reason For Study: CEREBRAL ISCHEMIA/EMBOLUS * BSA: 2.1 m2 * -- Conclusions -- * The left ventricle is normal in size. * There is normal left ventricular wall thickness. * Ejection Fraction = 60-65%. * Left ventricular systolic function is normal. * The left ventricular wall motion is normal. * The right ventricle is normal in size and function. * No PFO by aggitated saline Procedure Details * A saline contrast injection was performed to assess for cardiac shunting. * The injection was performed through an intravenous line in the left arm. * The attending nurse who injected the saline contrast was BARBARA ANDERSON. * A total of 20 cc of agitated saline was given. * A contrast injection of Definity was performed to improve assessment of LV function. * Contrast was injected into an intravenous site in the left arm. * One vial of Definity ultrasound contrast was diluted in normal saline to a total volume of 10 ml. A total of '2' ml of solution was administered during imaging. * Lot # [id number] of Definity utilized for procedure. * Expiration date JAN 20. * The attending nurse who injected the contrast agent was BARBARA ANDERSON. Left Ventricle * The left ventricle is normal in size. * There is normal left ventricular wall thickness. * Ejection Fraction = 60-65%. * Left ventricular systolic function is normal. * The left ventricular wall motion is normal. Right Ventricle * The right ventricle is normal in size and function. * The right ventricular systolic function is normal as assessed by tricuspid annular plane systolic excursion (TAPSE) (normal >1.5 cm). Atria * The left atrial size is normal. * Right atrial size is normal. * No PFO by aggitated saline Mitral Valve * The mitral valve is grossly normal. * There is trace mitral regurgitation. Tricuspid Valve * The tricuspid valve is not well visualized, but is grossly normal. * There is trace tricuspid regurgitation. Aortic Valve * The aortic valve is trileaflet. * No aortic regurgitation is present. Pulmonic Valve * The pulmonic valve is not well seen, but is grossly normal. Great Vessels * The aortic root is normal size. Pericardium/Pleural * There is no pericardial effusion. Great Vessels * IVC not seen Left Ventricular Diastolic Function * Probably normal LA pressures MMode 2D Measurements and Calculations IVSd 1.6 cm IVSs 1.8 cm LVIDd 3.9 cm LVIDs 2.7 cm LVPWd 1.3 cm LVPWs 1.9 cm IVS/LVPW 1.2 FS 31.1 % EDV(Teich) 65.8 ml ESV(Teich) 26.7 ml EF(Teich) 59.5 % EDV(cubed) 59.2 ml ESV(cubed) 19.4 ml EF(cubed) 67.3 % % IVS thick 13.7 % % LVPW thick 42.3 % LV mass(C)d 219.0 grams LV mass(C)dI 102.1 grams/m\S\2 LV mass(C)s 205.7 grams LV mass(C)sI 96.0 grams/m\S\2 SV(Teich) 39.2 ml SI(Teich) 18.3 ml/m\S\2 SV(cubed) 39.8 ml SI(cubed) 18.6 ml/m\S\2 LA dimension 3.8 cm LVAd ap4 33.7 cm\S\2 LVLd ap4 8.6 cm EDV(MOD-sp4) 106.9 ml EDV(sp4-el) 112.3 ml LVAs ap4 20.8 cm\S\2 LVLs ap4 7.0 cm ESV(MOD-sp4) 48.9 ml ESV(sp4-el) 52.3 ml EF(MOD-sp4) 54.3 % EF(sp4-el) 53.4 % LVAd ap2 33.7 cm\S\2 LVLd ap2 8.9 cm EDV(MOD-sp2) 105.3 ml EDV(sp2-el) 108.1 ml LVAs ap2 21.3 cm\S\2 LVLs ap2 7.5 cm ESV(MOD-sp2) 49.9 ml ESV(sp2-el) 50.8 ml EF(MOD-sp2) 52.7 % EF(sp2-el) 53.0 % LVLd %diff 4.0 % EDV(MOD-bp) 104.8 ml LVLs %diff 7.5 % ESV(MOD-bp) 50.4 ml EF(MOD-bp) 51.9 % SV(MOD-sp4) 58.0 ml SI(MOD-sp4) 27.1 ml/m\S\2 SV(MOD-sp2) 55.5 ml SI(MOD-sp2) 25.9 ml/m\S\2 SV(MOD-bp) 54.4 ml SI(MOD-bp) 25.4 ml/m\S\2 SV(sp4-el) 59.9 ml SI(sp4-el) 28.0 ml/m\S\2 SV(sp2-el) 57.3 ml SI(sp2-el) 26.7 ml/m\S\2 Doppler Measurements and Calculations MV E max paulino 80.5 cm/sec MV A max paulino 62.1 cm/sec MV E/A 1.3 MV dec time 0.22 sec Ao V2 max 146.6 cm/sec Ao max PG 8.6 mmHg Ao max PG (full) 2.2 mmHg LV V1 max PG 6.4 mmHg LV V1 max 126.7 cm/sec
[2016-11-20] MEDS ORDERED: SIMVASTATIN 10 MG TAB PO SCH (21:00)
[2016-11-21 08:02] LABS: ESTIMATED AVERAGE GLUCOSE 108 mg/dl; HA1C FLAG Normal (Normal)
[2017-02-21] MEDS ORDERED: LEVO50TA PO (14:18)
== END 2016-11-20 12:15 | disposition home or self-care (01) | DRG 103 ==
LOC: C.EDB 14:06 → C.2T 17:43 → ENRESERV 17:51
PROVIDERS: ADMIT Internal Medicine; ATTEND Hospitalist
DX: G43.809 Other migraine, not intractable, without status migrainosus (principal); Z68.44 Body mass index [BMI] 60.0-69.9, adult; R20.2 Paresthesia of skin; F31.9 Bipolar disorder, unspecified; M17.9 Osteoarthritis of knee, unspecified; F17.210 Nicotine dependence, cigarettes, uncomplicated; E66.9 Obesity, unspecified; Z79.899 Other long term (current) drug therapy

== ENCOUNTER → 2017-02-21 | Outpatient (CLI) | payer BC ==
[~2017-02-21] MED LIST changes: +EXM/25 PO; +GABA-113 PO; +LEVO50TA PO; -NRN/600 PO; -TAMO20TA9 PO
[2017-02-21 13:57] VITALS: BP 116/76; PULSE 77; TEMP 37.1; O2SAT 94
--- NOTE | 2017-02-21 16:40 | Radiation Oncology Follow-Up ---
Radiation Oncology Follow-Up Date of Visit Feb 21, 2017. Reason For Visit Annual follow-up Radiation Completion Date 06/21/13 Diagnosis (1) Breast cancer Status: Resolved Onset Date: 04/03/2013 Histology Subtype: ductal Stage: l Permanent Comment: Abnormal left breast mammogram Status post biopsy revealing invasive ductal carcinoma Estrogen receptor positive, progesterone receptor positive, HER-2/akilah negative Status post left breast lumpectomy and sentinel lymph node biopsy 04/03/2013 stage [id number] Status post completion of radiation therapy utilizing accelerated partial breast treatment completed 06/21/2013 received 3850 cGy Status post reduction Mamopexy August 2013 Last Edited By: Ashley Nash on Feb 21, 2017 16:35 Interim History She's been doing well over this past year. She denies any changes to her breast. She is noted no masses or tenderness and no change of the axilla she's had no swelling of her arm. She is up-to-date on mammography. She continues on anti-estrogen therapy. She is on Aromasin. She is tolerating this well. She denies any hot flashes. Allergies Coded Allergies: No Known Allergies (Unverified , 11/19/16) Home Medications Scheduled Citalopram Hydrobromide (Celexa), 40 MG PO HS Exemestane (Aromasin), 25 MG PO QAM Gabapentin (Neurontin), 300 MG PO BID Levothyroxine Sodium (Synthroid), 1 TAB PO DAILY [place] Carbonate Ext Rel (Lithobid Ext Rel), 300 MG PO QAM [place] Carbonate Ext Rel (Lithobid Ext Rel), 600 MG PO QPM Multivitamin (Multivitamin), 1 TAB PO DAILY [place]-3 Fatty Acids ([place] 3), 2 CAP PO DAILY Probiotic Product (Probiotic), 1 CAP PO DAILY Review of Systems Gastrointestinal: Symptoms: WNL Oral: Symptoms: No Problems Other Oral Symptoms: had mouth ulcers no prob now Respiratory: Symptoms: WNL Urinary: Symptoms: WNL Comments: Was treated for recent UTI Skin: Symptoms: No Problems Breast: Right Upper Arm Measurement: 36.4 Right Mid Arm Measurement: 28.5 Right Wrist Measurement: 16.8 Left Upper Arm Measurement: 35.2 Left Mid Arm Measurement: 27.3 Left Wrist Measurement: 16.6 Arm Dominence: Right Patient Cosmetic Evaluation: Excellent Staff Cosmetic Evalaluation: Excellent Physical Exam Vital Signs Date Time Temp Pulse Resp B/P (MAP) Pulse Ox O2 Delivery O2 Flow Rate FiO2 02/21/17 13:57 37.1 77 24 116/76 94 Pain: Patient Pain Scale: 0 - 10 Initial Pain Intensity: 0.0 Fatigue: None General Appearance: no apparent distress Eyes: normal inspection, EOMI ENT: normal ENT inspection, hearing grossly normal Neck: no adenopathy, thyroid normal Respiratory/Chest: lungs clear, no respiratory distress, no accessory muscle use Breast: Breast examination reveals bilateral mammogram. Tattoo is noted on the left breast. There are no masses or tenderness and no axillary adenopathy. She has no skin retractions. She has small amount of telangiectasia across the center of the left nipple. Using the Moody score cosmesis she has a good outcome. The right breast showed no masses or tenderness and no axillary adenopathy. Cardiovascular: regular rate, rhythm, no gallop, no murmur Extremities: no pedal edema Neurologic/Psychiatric: no motor/sensory deficits, alert, normal mood/affect Skin: warm/dry Additional Studies BILATERAL DIGITAL SCREENING MAMMOGRAM TOMOSYNTHESIS WITH CAD: 09/22/2016 CLINICAL HISTORY: Asymptomatic. Personal history of breast cancer. TECHNIQUE: Breast tomosynthesis in addition to standard 2D mammography was performed. Current study was also evaluated with a Computer Aided Detection (CAD ) system. COMPARISON: Comparison is made to exams dated: 09/15/2015 mammogram, 09/05/2014 mammogram, 03/04/2014 mammogram, 09/10/2012 mammogram, 08/03/2010 mammogram - [facility], and 07/24/2007. BREAST COMPOSITION: There are scattered areas of fibroglandular density in both breasts. FINDINGS: No suspicious masses, calcifications, or areas of architectural distortion are noted in either breast. There has been no significant interval change compared to prior exams. There are stable postoperative changes in the left lateral breast from prior lumpectomy, as well as post surgical changes from bilateral reduction mammoplasty. IMPRESSION: ACR BI-RADS CATEGORY 2: BENIGN There is no mammographic evidence of malignancy. A 1 year screening mammogram is recommended. The patient will receive written notification of the results. Approximately 10% of breast cancers are not detected with mammography. A negative mammographic report should not delay biopsy if a clinically suggestive mass is present. Cecy Bonds M.D. /:09/22/2016 07:53:47 Collateral Analyst: Jenny ANTHONY)(Rajiv), [facility] letter sent: Normal 1/2 BI-RADS Code: ACR BI-RADS Category 2: Benign Dictated by: Cecy Bonds MD Signed by: Cecy Bonds MD Assessment & Plan Plan: Continue annual mammography. Continue on the antiestrogen therapy. She continues follow-up with medical oncology and her primary care physician. I reviewed with her the telangiectasia that is noted on the nipple. She was reassured that this is a later side effect of radiation. We asked her to return to our office in 1 year. She may cause she has any questions or concerns in the interim. Total Time In Follow-Up I spent 20 minutes speaking to the patient and performing examination. I spent 15 minutes reviewing information in completing this note. Copy To Preston Silvestre M.D.; Teofilo Boo D.O. Problem Qualifiers (1) Breast cancer: Breast location: upper outer quadrant of breast Estrogen receptor status: positive Patient sex: female Laterality: left Qualified Codes: C50.412 - Malignant neoplasm of upper-outer quadrant of left female breast; Z17.0 - Estrogen receptor positive status [ER+]
== END | disposition home or self-care (01) ==
LOC: C.ONC 13:50
PROVIDERS: ATTEND Physician Assistant Medical
DX: Z08 Encounter for follow-up examination after completed treatment for malignant neoplasm (principal); Z92.3 Personal history of irradiation; Z85.3 Personal history of malignant neoplasm of breast

== ENCOUNTER → 2017-03-10 | Outpatient (CLI) | payer BC ==
[2017-03-10 11:15] LABS: BLOOD UREA NITROGEN 11 mg/dl (7-18); BUN/CREATININE RATIO 14.5 (10-20); CALCIUM 9.4 mg/dl (8.5-10.1); CARBON DIOXIDE 22 mmol/L (21-32); CHLORIDE 112 mmol/L (98-107); CREATININE 0.74 mg/dl (0.60-1.20); GLUCOSE 124 mg/dl (70-99); SODIUM 143 mmol/L (136-145)
[2017-03-10 11:26] LABS: THYROID STIMULATING HORMONE 0.127 uIu/ml (0.300-4.500)
== END | disposition home or self-care (01) ==
LOC: C.LABBC 08:19
PROVIDERS: ATTEND Psychiatry & Neurology Psychiatry
DX: Z51.81 Encounter for therapeutic drug level monitoring (principal); Z79.899 Other long term (current) drug therapy

== ENCOUNTER → 2017-03-28 | Outpatient (CLI) | payer BC ==
--- NOTE | 2017-03-28 13:55 | DIAGNOSTIC IMAGING REPORT ---
LEFT WRIST 4 VIEWS CLINICAL HISTORY: Left wrist pain. FINDINGS: 4 views of left wrist are obtained. No prior studies are available for comparison at the time of dictation. The skeletal structures appear osteopenic. There is no radiographic evidence of fracture. Minimal degenerative changes seen at the first carpal metacarpal reticulation. The joint spaces appear preserved. Mild dorsal soft tissue swelling is noted. IMPRESSION: Mild dorsal soft tissue swelling with no acute bony abnormality identified in the left wrist. Electronically signed by: Grabiel Tamez M.D. 03/28/2017 1:54 PM Dictated Date/Time: 03/28/2017 1:50 PM
== END | disposition home or self-care (01) ==
LOC: C.RADBC 13:32
PROVIDERS: ATTEND Chiropractor
DX: M25.532 Pain in left wrist (principal); M25.432 Effusion, left wrist

== ENCOUNTER → 2017-04-21 | Outpatient (CLI) | payer BC ==
[2017-04-21 10:53] LABS: BASO % 0.5 %; BASO ABS # 0.03 K/uL (0-0.2); COMPLETE YES; HEMATOCRIT 41.1 % (37-47); IG% 0.3 %; LYMPH % 27.1 %; LYMPH ABS # 1.64 K/uL (1.2-3.4); MEAN CELL VOLUME 89.7 fL (80-100); MEAN CORPUSCULAR HEMOGLOBIN 30.6 pg (25-34); MEAN CORPUSCULAR HGB CONC 34.1 g/dl (32-36); MEAN PLATELET VOLUME 11.5 fL (7.4-10.4); MONO % 7.3 %; NEUT % 60.8 %; PLATELET COUNT 162 K/uL (130-400); RED BLOOD COUNT 4.58 M/uL (4.2-5.4); WHITE BLOOD COUNT 6.05 K/uL (4.8-10.8)
[2017-04-21 11:28] LABS: ALT/SGPT 42 U/L (12-78); AST/SGOT 42 U/L (15-37); BLOOD UREA NITROGEN 15 mg/dl (7-18); BUN/CREATININE RATIO 20.4 (10-20); CALCIUM 9.1 mg/dl (8.5-10.1); CARBON DIOXIDE 26 mmol/L (21-32); CHLORIDE 109 mmol/L (98-107); CREATININE 0.76 mg/dl (0.60-1.20); GLUCOSE 117 mg/dl (70-99); POTASSIUM 4.1 mmol/L (3.5-5.1); SODIUM 140 mmol/L (136-145)
[2017-04-21 11:30] LABS: ALKALINE PHOSPHATASE 81 U/L (45-117)
[2017-04-21 11:36] LABS: ESTIMATED AVERAGE GLUCOSE 103 mg/dl; HA1C FLAG Normal (Normal); THYROID STIMULATING HORMONE 1.82 uIu/ml (0.300-4.500)
[2017-04-21 14:06] LABS: CHOLESTEROL/HDL RATIO 4.4
== END | disposition home or self-care (01) ==
LOC: C.LABBC 07:43
PROVIDERS: ATTEND Physician Assistant Medical
DX: C50.912 Malignant neoplasm of unspecified site of left female breast (principal); Z79.899 Other long term (current) drug therapy; E78.5 Hyperlipidemia, unspecified; R94.6 Abnormal results of thyroid function studies; R73.9 Hyperglycemia, unspecified

== ENCOUNTER → 2017-04-26 | Outpatient (CLI) | payer BC ==
--- NOTE | 2017-04-26 13:30 | DIAGNOSTIC IMAGING REPORT ---
NUCLEAR MEDICINE WHOLE-BODY BONE SCAN CLINICAL HISTORY: Breast carcinoma COMPARISON STUDY: Conventional radiographic evaluation the right knee dated 03/29/2016 FINDINGS: The patient was injected with 26.7 mCi of technetium 99m MDP. Three-hour delayed whole body images were acquired. There are foci of increased activity within the knees ankles and feet consistent with degenerative/arthritic change. There is a focus of minimal increased activity within the right cervical ventricular junction likely arthritic. There are no foci of increased activity viewed as suspicious for metastatic disease. There is prominent of the right renal collecting system. IMPRESSION: No scintigraphic evidence of skeletal metastasis. Electronically signed by: Sreekanth Lewis M.D. 04/26/2017 1:28 PM Dictated Date/Time: 04/26/2017 1:26 PM
== END | disposition home or self-care (01) ==
LOC: C.NUCL 10:00
PROVIDERS: ATTEND Internal Medicine Hematology & Oncology
DX: D49.3 Neoplasm of unspecified behavior of breast (principal)

== ENCOUNTER → 2017-05-14 | Outpatient (CLI) | payer BC ==
--- NOTE | 2017-05-15 06:26 | PAP/PSG TECHNICIAN REPORT ---
[facility] Desktop Support Specialist Polysomnogram Report Study name: None Report date: 05/15/2017 Study date: 05/14/2017 Referring Physician: Svetlana Meade PA-C Name: QI KINSEY Interpreting Physician: Chacho Gonzales D.O. Date of : 1955 Desktop Support Specialist: Latonia Colby [facility]. Sex: Female Age: 62 StudyType: PSG PAP Weight: 256 lbs Height: 62 years, Height 5' 2" Neck Circum: BMI: 46.82 Medications: Exemestane 25 mg, [place] Carbonate 300 mg, Aspirin 81 mg, Escitalopram Oxalate 20 mg, Gabapentin 300 mg, [place] 3, Probitic, Patient History 62 yr. old female here for an updates titration sleep study. She has been on CPAP since 2002. Her last study was done on 04/14/2010 and was titrated to a pressure of 10 CmH20. ESS8/24. Parameters Monitored NPSG: E1-M2, E2-M1, Fp1-M2, Fp2-M1, F3-M2, F4-M2, F4-M1, C3-M2, C4-M2, C4-M1, O1-M2, O2-M2, O2-M1, T3-M2, T4-M1, P3-M2, P4-M1, CHIN1, CHIN2, HR, EKG, Legs, PFLOW, SNOR, FLOW, CFLOW, Tidal Volume, THOR, ABDO, SpO2, PLTH, CPRESS, ETCO2 Wave, ETCO2, pH Sleep Architecture Sleep Stages Time at Lights Off 10:51:41 PM STAGES Time (min.) TST (%) Time at Lights On 5:42:41 AM Wake 74.0 -- Total Recording Time (TRT) 411.00 min. N1 31.5 9 Total Sleep Period (TSP) 398.5 min. N2 266.5 79 Total Sleep Time (TST) 337.0min. N3 39.0 12 Awake Time 74.0 min. REM 0.0 0 Wake after Sleep Onset 61.5 min. Sleep Efficiency (SE) 82 % Sleep Onset Latency (NIRMALA) 12.5 min. Number of Stage 1 Shifts None Awakenings 26 Stage Changes 113 Number of REM periods N/A REM 0.0 0 REM Latency NONE min. NREM 337.0 100 Body Position Analysis Supine Right Left Side Prone Vertical Total Sleep Time (min.) 411.0 0.0 0.0 0.00 0.0 0.0 Total Sleep Time (%) 100% 0% 0% 0 0% N/A% Total Sleep Time REM (min.) 0.0 0.0 0.0 None 0.0 0.0 Total Sleep Time NREM (min.) 337.0 0.0 0.0 None 0.0 0.0 Intermittent Wake (min.) 74.0 0.0 0.0 None 0.0 0.0 Total Sleep Period (%) 100% None None None None None Arousals Myoclonus (PLM) * Events Count Index Events Count Index Spontaneous 13 2 Events Awake (PLMW) 100 81.1 Respiratory 7 1.2 Events Asleep w/ Arousal (PLMA) 31 5.5 PLM 31 6 Events Asleep w/o Arousal (PLMS) 114 20.3 Snoring 3 1 Total Asleep 145 25.8 Total 54 10 Total 245 36 Respiratory Analysis * CA OA MA CH H RERA Total Count 1 1 1 0 46 2 49 Index 0.2 0.2 0.2 0 8.2 0 9.1 Mean Duration 10.3 12.5 22.9 0.00 24.3 23.1 23.8 Longest Duration 10.3 12.5 22.9 0.00 22.9 25.6 59.4 Respiratory Event Summary Total Supine ~Supine Right Left Prone REM NREM Apneas Count 3 3 N/A N/A N/A N/A N/A 3 Index 0.5 1 N/A N/A N/A N/A N/A 1 Hypopneas (4% Desat) Count 46 46 N/A N/A N/A N/A N/A 46 Index 8.2 8.2 N/A N/A N/A N/A N/A 8.2 Apneas & All Hypopneas Count 49 49 N/A N/A N/A N/A N/A 49 Index 8.7 9 N/A N/A N/A N/A N/A 8.7 Respiratory Events (Health Care Aide+All Hyp+RERA) Count 49 51 N/A N/A N/A N/A N/A 49 Index 9.1 9 N/A N/A N/A N/A N/A 9.1 Respiratory Related Arousal Count 7 51 N/A N/A N/A N/A N/A 7 Index 1.2 1 N/A N/A N/A N/A N/A 1 Snoring Analysis Supine Right Left Prone REM NREM Total Snore duration 7.9 min Snores count 403 N/A N/A N/A N/A 403 403 Snore mean duration 1.2 Sec Snores index 72 N/A N/A N/A N/A 71.8 71.8 TST with snoring (%) 2.3% Desaturation Event Summary: Minimum %SpO2 Event Count Mean/Min/Max Duration(sec.) Desaturation Index % Time In Bed > 90 37 24.6 / 9.5 / 60.0 12.8 42.3 86 - 90 41 19.4 / 6.8 / 53.3 10.6 56.5 81 - 85 0 N/A 0.0 1.2 76 - 80 0 N/A 0.0 0.1 71 - 75 0 N/A 0.0 0.0 66 - 70 0 N/A 0.0 0.0 61 - 65 0 N/A 0.0 0.0 56 - 60 0 N/A 0.0 0.0 51 - 55 0 N/A 0.0 0.0 < 50 0 N/A 0.0 0.0 Total REM NREM Awake <50% 0.0 min. 0.0 min. 0.0 min. 0.0 min. 51 - 60% 0.0 min. 0.0 min. 0.0 min. 0.0 min. 61 - 70% 0.0 min. 0.0 min. 0.0 min. 0.0 min. 71 - 80% 0.3 min. 0.0 min. 0.1 min. 0.2 min. 81 - 90% 236.7 min. 0.0 min. 205.8 min. 30.9 min. 91 - 100% 173.4 min. 0.0 min. 131.1 min. 42.3 min. Average 90 0 90 91 Minimum SpO2 78 N/A 78 78 Desaturation Event Index 9.1 0.0 9.6 8.9 # Desat. Events below 89% 50 N/A 45 5 Time(%) with Saturation below 89% 25.0 0.0 23.9 1.1 Time(min.) with Saturation below 89% 102.6 0.0 98.2 4.4 Time (mins) REM (mins) NREM (mins) % of TST SpO2 Below 90% 53 N/A N53 43.0 SpO2 Below 88% 15 0 0 13 Heart Rate Analysis Min (bpm) Max (bpm) Average (bpm) Awake 51 77 62 NREM 50 77 65 REM N/A N/A N/A Overall 50 77 65 Supplemental O2 Values Minimum O2 level: None Value Start Time End Time Desktop Support Specialist Comments Mrs. Kinsey slept in the supine positions. Cardiac arrhythmia and PLMs noted. No bruxism noted. CPAP was initiated at +4 CMH2O room air and up-titrated to a level of 13 CMH2O no Cflex, which nearly eliminated all respiratory events and snoring. A small quattro air full face mask was used during titration. Mrs. Kinsey did not wake to use the during the night. Mrs. Kinsey stated, "(Example) I did not sleep as well as I do when I am in my own bed". The final report will be interpreted and signed by a sleep physician. The completed physician report will then be placed in the patient medical record. Therapy Event: Therapy (cm H20) 4 5 6 7 8 9 10 11 12 13 Total Time at Pressure (min.) 23.9 14.7 41.5 9.1 30.0 9.3 46.7 29.8 69.0 137.0 TST at Pressure (min.) 11.4 10.2 38.5 9.1 28.5 8.8 45.2 28.3 60.0 97.0 # Periods 1 1 1 1 1 1 1 1 1 1 Sleep Onset (min.) 12.5 0.0 0.0 0.0 0.0 0.0 0.0 0.0 0.0 0.0 REM Onset (min.) N/A N/A N/A N/A N/A N/A N/A N/A N/A N/A Sleep Efficiency % 47 69 92 100 95 94 96 95 87 70 Wakefulness (%) 52.4 30.6 7.2 0.0 5.0 5.4 3.2 5.0 13.0 29.2 Wakefulness (min.) 12.5 4.5 3.0 0.0 1.5 0.5 1.5 1.5 9.0 40.0 NREM 1 (%) 27.2 20.4 8.4 0.0 1.7 5.4 4.3 3.4 7.2 6.9 NREM 1 (min.) 6.5 3.0 3.5 0.0 0.5 0.5 2.0 1.0 5.0 9.5 NREM 2 (%) 20.4 49.0 63.9 100.0 78.3 83.9 67.9 89.8 60.2 63.9 NREM 2 (min.) 4.9 7.2 26.5 9.1 23.5 7.8 31.7 26.8 41.5 87.5 NREM 3 (%) 0.0 0.0 20.5 0.0 15.0 5.4 24.6 1.8 19.5 0.0 NREM 3 (min.) 0.0 0.0 8.5 0.0 4.5 0.5 11.5 0.5 13.5 0.0 REM (%) 0.0 0.0 0.0 0.0 0.0 0.0 0.0 0.0 0.0 0.0 REM (min.) 0.0 0.0 0.0 0.0 0.0 0.0 0.0 0.0 0.0 0.0 # Arousals 5 4 8 0 0 2 7 4 9 15 Arousal Index 26.4 23.5 12.5 0.0 0.0 13.6 9.3 8.5 9.0 9.3 # Snore 27 15 40 106 129 2 13 6 27 38 Snore Index 142.5 88.1 62.3 700.2 272.0 13.6 17.2 12.7 27.0 23.5 AHI 0.0 35.2 21.8 6.6 4.2 54.3 10.6 8.5 6.0 0.0 AHI Supine 0.0 35.2 21.8 6.6 4.2 54.3 10.6 8.5 6.0 0.0 AHI Non-Supine N/A N/A N/A N/A N/A N/A N/A N/A N/A N/A NREM AHI 0.0 35.2 21.8 6.6 4.2 54.3 10.6 8.5 6.0 0.0 REM AHI N/A N/A N/A N/A N/A N/A N/A N/A N/A N/A RDI 0.0 41.1 21.8 6.6 4.2 54.3 10.6 8.5 6.0 0.6 # Obstructive 0 0 1 0 0 0 0 0 0 0 # Central Ap 0 0 0 0 0 0 1 0 0 0 # Mixed 0 0 0 0 0 0 1 0 0 0 # Hypopneas 0 6 13 1 2 8 6 4 6 0 RERAS 0 1 0 0 0 0 0 0 0 1 Total Respiratory Events 0 7 14 1 2 8 8 4 6 1 Time Below SpO2 89.00% (min.) 4.8 4.8 27.0 8.5 25.0 3.9 20.3 2.5 0.8 0.6 Mean NREM SpO2 (%) 89 88 88 87 88 89 89 90 91 91 Mean REM SpO2 (%) N/A N/A N/A N/A N/A N/A N/A N/A N/A N/A Mean Sleep SpO2 (%) 89 88 88 87 88 89 89 90 91 91 Min NREM SpO2 (%) 86 78 80 85 82 83 82 86 87 88 Min REM SpO2 (%) N/A N/A N/A N/A N/A N/A N/A N/A N/A N/A Position Supine (min.) 11.4 10.2 38.5 9.1 28.5 8.8 45.2 28.3 60.0 97.0 Position Non-supine (min.) 0.0 0.0 0.0 0.0 0.0 0.0 0.0 0.0 0.0 0.0 LM Index Sleep 52.8 64.6 28.0 6.6 4.2 33.9 11.9 14.8 19.0 39.0 LM Index NREM 52.8 64.6 28.0 6.6 4.2 33.9 11.9 14.8 19.0 39.0 LM Index REM N/A N/A N/A N/A N/A N/A N/A N/A N/A N/A Mean Heart Rate (bpm) 67 67 71 69 70 68 67 65 62 60 Min Heart Rate (bpm) 60 61 61 62 62 61 56 56 54 50
--- NOTE | 2017-05-17 13:53 | Sleep Study ---
Sleep Study Report Date of Service: 05/14/2017 Sleep Study Report Clinical data: The patient is a 62-year-old female with a history of obstructive sleep apnea since approximately 2002. She has been on nasal CPAP since then. Her most recent study was done 04/14/2010 and her pressure at that time was 10 centimeters. She has an [place] Sleepiness Scale score of 8 out of a possible 24. She is referred by Svetlana Meade PA-C for a CPAP retitration. Sleep architecture: The patient had a total sleep period of 398.5 minutes. The total sleep time was 337 minutes. The sleep efficiency was mildly decreased to 82 percent. The sleep latency was 12.5 minutes. Wake after sleep onset was increased to 61.5 minutes. There was no REM periods. Sleep consisted of stage N1 9 percent, stage N2 79 percent, stage N3 12 percent , stage REM 0 percent. Arousal data: The patient had a total of 54 arousals including 13 spontaneous arousals, 7 respiratory arousals, 31 PLM arousals, and 3 snoring arousals. The arousal index is 10. PLM data: The patient had 145 periodic limb movements of sleep for a PLM index of 25.8. There were 31 arousals associated with limb movements for a PLM arousal index of 5.5. EKG: The underlying cardiac rhythm was normal sinus. There was at least moderate PACs noted. The cardiac rates ranged from 50-77 beats per minute. The average heart rate was 65 beats per minute. Respiratory data: The patient's nocturnal events were treated with nasal CPAP. She had a total of 49 events including 1 central apnea, 1 obstructive apnea, and 46 hypopneas. Hypopneas were scored according to the 4 percent desaturation rule. She also had 2 RERAs. The longest apnea was 12.5 seconds. The mean duration of the hypopneas was 24.3 seconds. The apnea-hypopnea index was 8.7. At the final pressure of 13 centimeters she had 0 respiratory events for an apnea-hypopnea index of 0. Oximetry data: The average saturation for the night was 90 percent. The minimum saturation was 78 percent. This occurred early on prior to the patient being at the optimum pressures. There was a total of 102.6 minutes with saturations less than 89 percent. There was no significant desaturation at the final pressure. Adolescent Specialist comments: The patient slept in the supine position. Cardiac arrhythmia and PLMS were noted. No bruxism noted. CPAP was initiated at 4 centimeters and room air and up titrated to a level of 13 centimeters which nearly eliminated all respiratory events and snoring. A small Quattro air fullface mask was used. The patient did not awaken to use the restroom. Impressions: 1. Obstructive sleep apnea-resolved with nasal CPAP at 13 centimeters Comments: The patient did well with nasal CPAP once her pressures were increased to adequate levels. Early on she was having oxygen desaturations and events which resolved. There was no REM sleep however. The patient is taking escitalopram which could suppress REM sleep. She did have a moderate number of PACs during the study. Recommendations: 1. It is advised that the patient CPAP be adjusted to 13 centimeters. 2. If the patient needs a new mask, consideration is given to a small Quattro air full face mask. 3. If possible it would be advised that the patient avoid sleeping in the supine position. 4. The patient should be advised the appropriate principles of sleep hygiene including having a regular sleep-wake schedule and allowing approximately 7-8 hours of sleep time per night. 5. Patient had a modest number of limb movements. Clinical correlation is required to determine if she has true restless leg syndrome. Some of her medications such as escitalopram may contribute to the limb movement disorder. Copies To 1: Chacho Gonzales DO; Svetlana Meade PAC
== END | disposition home or self-care (01) ==
LOC: C.NEUR 20:00
PROVIDERS: ATTEND Physician Assistant Medical
DX: G47.33 Obstructive sleep apnea (adult) (pediatric) (principal)

== ENCOUNTER → 2017-08-18 | Outpatient (CLI) | payer BC ==
[2017-08-18 14:09] LABS: ALT/SGPT 47 U/L (12-78); AST/SGOT 39 U/L (15-37); BLOOD UREA NITROGEN 18 mg/dl (7-18); CALCIUM 9.8 mg/dl (8.5-10.1); CARBON DIOXIDE 23 mmol/L (21-32); CHOLESTEROL 161 mg/dl (0-200); CREATININE 0.76 mg/dl (0.60-1.20); GLUCOSE 120 mg/dl (70-99); SODIUM 138 mmol/L (136-145)
[2017-08-18 14:15] LABS: ALKALINE PHOSPHATASE 95 U/L (45-117); LDL CHOLESTEROL CALCULATED 103 mg/dl; TOTAL PROTEIN 7.8 gm/dl (6.4-8.2)
== END | disposition home or self-care (01) ==
LOC: C.LABBC 10:06
PROVIDERS: ATTEND Physician Assistant Medical
DX: R94.6 Abnormal results of thyroid function studies (principal); R73.9 Hyperglycemia, unspecified; E78.5 Hyperlipidemia, unspecified

== ENCOUNTER → 2018-01-01 | Outpatient (CLI) | payer BC ==
--- NOTE | 2018-01-01 15:06 | DIAGNOSTIC IMAGING REPORT ---
L HAND MIN 3 VIEWS ROUTINE, R HAND MIN 3 VIEWS ROUTINE HISTORY: 62 years-old Female K12.1 Oral [id number] Tendinitis of [id number] Rheumatoid factor chronic bilateral hand pain with history of rheumatoid arthritis COMPARISON: Left wrist radiographs 03/28/2017 TECHNIQUE: 3 views of the bilateral hands FINDINGS: LEFT: Mild first carpometacarpal joint space narrowing with marginal spurring. Moderate to severe joint space narrowing with subchondral sclerosis involves the DIP joints with moderate PIP joint space narrowing. Marginal osteophytosis is also noted about the interphalangeal joints. No definite erosive changes. The bones appear mildly demineralized. RIGHT: Mild triscaphe and first carpometacarpal osteoarthritis. Moderate joint space narrowing with marginal spurring and subchondral sclerosis of the interphalangeal joints. No definite erosive arthropathy identified. The bones appear mildly demineralized. IMPRESSION: 1. No acute fracture. 2. Degenerative changes as above suggest primary osteoarthritis. 3. No evidence of erosive arthropathy. The above report was generated using voice recognition software. It may contain grammatical, syntax or spelling errors. Electronically signed by: Fredi Acuna M.D. 01/01/2018 3:04 PM Dictated Date/Time: 01/01/2018 3:01 PM
--- NOTE | 2018-01-01 15:06 | DIAGNOSTIC IMAGING REPORT ---
L HAND MIN 3 VIEWS ROUTINE, R HAND MIN 3 VIEWS ROUTINE HISTORY: 62 years-old Female K12.1 Oral [id number] Tendinitis of [id number] Rheumatoid factor chronic bilateral hand pain with history of rheumatoid arthritis COMPARISON: Left wrist radiographs 03/28/2017 TECHNIQUE: 3 views of the bilateral hands FINDINGS: LEFT: Mild first carpometacarpal joint space narrowing with marginal spurring. Moderate to severe joint space narrowing with subchondral sclerosis involves the DIP joints with moderate PIP joint space narrowing. Marginal osteophytosis is also noted about the interphalangeal joints. No definite erosive changes. The bones appear mildly demineralized. RIGHT: Mild triscaphe and first carpometacarpal osteoarthritis. Moderate joint space narrowing with marginal spurring and subchondral sclerosis of the interphalangeal joints. No definite erosive arthropathy identified. The bones appear mildly demineralized. IMPRESSION: 1. No acute fracture. 2. Degenerative changes as above suggest primary osteoarthritis. 3. No evidence of erosive arthropathy. The above report was generated using voice recognition software. It may contain grammatical, syntax or spelling errors. Electronically signed by: Fredi Acuna M.D. 01/01/2018 3:04 PM Dictated Date/Time: 01/01/2018 3:01 PM
--- NOTE | 2018-01-01 15:22 | DIAGNOSTIC IMAGING REPORT ---
L FOOT MIN 3 VIEWS ROUTINE CLINICAL HISTORY: Left foot pain COMPARISON: None. DISCUSSION: The bony mineralization appears normal. There are osteoarthritic changes the level the first metatarsal phalangeal joint. There are no acute fractures. There are no erosive changes. IMPRESSION: 1. Mild degenerative change at the level of the first metatarsal phalangeal joint 2. No evidence of erosive disease Electronically signed by: Sreekanth Lewis M.D. 01/01/2018 3:20 PM Dictated Date/Time: 01/01/2018 3:19 PM
--- NOTE | 2018-01-01 15:56 | DIAGNOSTIC IMAGING REPORT ---
R FOOT MIN 3 VIEWS ROUTINE CLINICAL HISTORY: K12.1 Oral [id number] Tendinitis of [id number] Rheumatoid factor RIGHT FOOT PAIN COMPARISON: None. DISCUSSION: There is normal bony mineralization. No fractures or dislocations are visualized. There is Achilles insertional spur and small plantar calcaneal spur. There are no erosive changes. There are minor degenerative changes the level the first metatarsal phalangeal joint. IMPRESSION: 1. No acute fractures 2. Minor degenerative change 3. Calcaneal spurring 4. No evidence of erosive disease Electronically signed by: Sreekanth Lewis M.D. 01/01/2018 3:55 PM Dictated Date/Time: 01/01/2018 3:54 PM
[2018-01-01 16:50] LABS: TRANSFERRIN 280 mg/dl (200-360)
[2018-01-01 16:58] LABS: BLOOD UREA NITROGEN 17 mg/dl (7-18); CALCIUM 9.2 mg/dl (8.5-10.1); CARBON DIOXIDE 24 mmol/L (21-32); CREATININE 0.78 mg/dl (0.60-1.20); GLUCOSE 86 mg/dl (70-99); SODIUM 137 mmol/L (136-145)
== END | disposition home or self-care (01) ==
LOC: C.RAD1850 14:41
PROVIDERS: ATTEND Internal Medicine Rheumatology
DX: K12.1 Other forms of stomatitis (principal); M25.50 Pain in unspecified joint; M77.8 Other enthesopathies, not elsewhere classified; R76.8 Other specified abnormal immunological findings in serum; M77.31 Calcaneal spur, right foot; M19.041 Primary osteoarthritis, right hand; M19.042 Primary osteoarthritis, left hand